=== PATIENT | male | born 1965 | race Two or more races ===

== ENCOUNTER 2017-07-05 13:18 | Inpatient (IN) | payer MEDICAID, OTHER ==
[~2017-07-05] VITALS: Ht 175.3 cm; Wt 104.2 kg
[2017-07-05 13:57] LABS: Basophils # (auto) 0 uL; Basophils % (auto) 0.8 % (0.0-2.0); Eosinophils # (auto) 0.1 uL; Eosinophils % (auto) 1.1 % (0.0-7.0); Hematocrit 45.5 % (41.0-53.0); Hemoglobin 15.7 g/dL (13.5-17.5); Lymphocytes % (auto) 33.3 % (10.0-50.0); Mean Corpuscular Hgb Conc. 34.5 g/dL (32.0-36.0); Mean Corpuscular Volume 92.7 fL (80.0-100.0); Monocytes # (auto) 0.6 uL; Monocytes % (auto) 10.8 % (0.0-12.0); Neutrophils # (auto) 3.2 uL; Platelet Count (auto) 213 10^3/uL (140-450); Red Blood Cells 4.91 10^6/uL (4.5-5.90)
[2017-07-05 14:21] LABS: Alanine Aminotransferase 570 U/L (16-61); Albumin 3.7 g/dL (3.4-5.0); Alkaline Phosphatase 482 U/L (45-117); Anion Gap 9 (5-15); Aspartate Aminotransferase 271 U/L (15-37); BUN/Creatinine Ratio 8.4; Bilirubin, Total 6.3 mg/dL (0.2-1.0); Blood Urea Nitrogen 11 mg/dL (7-18); Calcium 9.6 mg/dL (8.5-10.1); Carbon Dioxide 28 mmol/L (21-32); Chloride 94 mmol/L (98-107); GFR African American 74 mL/min; GFR Non-African American 61 mL/min; Lipase 223 U/L (73-393); Magnesium 2.5 mg/dL (1.6-2.6); Sodium 131 mmol/L (136-145)
[2017-07-05 14:29] LABS: Glucose 442 mg/dL (74-106)
[2017-07-05] MEDS ORDERED: SODIUM CHLORIDE 0.9% 1,000 ML IVB ONE (14:56)
[2017-07-05] MEDS ORDERED: NALBUPHINE HCL 10 MG/1ml INJECTION IV ONE (15:00)
[2017-07-05] MEDS ORDERED: METOCLOPRAMIDE HCL 5MG/ml INJ 2ml VIAL IV ONE (15:00)
[2017-07-05] MEDS ORDERED: cefTRIAXone 1GM/50ML D5W 50 ML IV ONE ×2 (17:30→18:00)
[2017-07-05] MEDS ORDERED: InsuLIN REG 1unit/0.01ml Soln (100units/ml) IV ONE (17:30)
[2017-07-05] MEDS: SODIUM CHLORIDE 0.9% 1,000 ML IV SCH (17:48)
[2017-07-05] MEDS ORDERED: PROMETHAZINE HCL 25 MG/ML 1ML IV PRN (18:00)
[2017-07-05] MEDS ORDERED: PANTOPRAZOLE 40 MG/10 ML VIAL IV ONE (18:00)
[2017-07-05] MEDS ORDERED: NITROGLYCERIN 0.4 MG SL TAB SL PRN (18:00)
[2017-07-05] MEDS ORDERED: LORazepam 2MG/ML-1ML VIAL IV PRN (18:00)
[2017-07-05] MEDS ORDERED: DEXTROSE (50%) 50ML SYRG IV PRN (18:00)
[2017-07-05] MEDS ORDERED: MORPHINE SULFATE 10 MG/ML INJ 1ML SDV IV PRN ×2 (18:00)
[2017-07-05] MEDS: metroNIDAZOLE 500MG/100ML 100 ML IV SCH (18:20)
[2017-07-05] MEDS: ACCU-CHEK COMFORT CURVE STRIP VI SCH (20:13)
[2017-07-05] MEDS: InsuLIN REG 1unit/0.01ml Soln (100units/ml) SC SCH (20:15)
[2017-07-05 21:00] VITALS: BP 105/71
[2017-07-06] VITALS (7 sets, daily range): BP systolic 118–153; BP diastolic 65–94
[2017-07-06] MEDS: ACCU-CHEK COMFORT CURVE STRIP VI SCH ×6 (00:05→19:56)
[2017-07-06] MEDS: InsuLIN REG 1unit/0.01ml Soln (100units/ml) SC SCH ×6 (00:05→19:56)
[2017-07-06] MEDS: metroNIDAZOLE 500MG/100ML 100 ML IV SCH ×4 (00:06→17:02)
[2017-07-06] MEDS: SODIUM CHLORIDE 0.9% 1,000 ML IV SCH ×4 (03:10→22:59)
[2017-07-06] MEDS ORDERED: AMLO10TA2 PO (04:17)
[2017-07-06] MEDS ORDERED: SIMV-8 PO (04:17)
[2017-07-06] MEDS ORDERED: PIOG30TA37 OR (04:17)
[2017-07-06] MEDS ORDERED: LISI40TA PO (04:17)
[2017-07-06 07:22] LABS: Basophils # (auto) 0 uL; Basophils % (auto) 0.5 % (0.0-2.0); Eosinophils # (auto) 0.1 uL; Eosinophils % (auto) 2.3 % (0.0-7.0); Hematocrit 40.8 % (41.0-53.0); Hemoglobin 14.2 g/dL (13.5-17.5); Lymphocytes # (auto) 1.5 uL; Lymphocytes % (auto) 34.3 % (10.0-50.0); Mean Corpuscular Hemoglobin 31.8 pg (28.0-32.0); Mean Corpuscular Hgb Conc. 34.7 g/dL (32.0-36.0); Mean Corpuscular Volume 91.7 fL (80.0-100.0); Monocytes # (auto) 0.5 uL; Monocytes % (auto) 10.8 % (0.0-12.0); Neutrophils # (auto) 2.3 uL; Neutrophils % (auto) 52.1 % (37.0-80.0); Nucleated Red Blood Cells % 0.2 %; Platelet Count (auto) 165 10^3/uL (140-450); Red Blood Cells 4.45 10^6/uL (4.5-5.90); Red Cell Distribution Width 12.8 % (11.8-14.3); White Blood Cell 4.4 10^3/uL (4.4-10.8)
[2017-07-06 07:46] LABS: Bilirubin, Total 4.3 mg/dL (0.2-1.0); Calcium 8.8 mg/dL (8.5-10.1); Total Protein 6.6 g/dL (6.4-8.2)
[2017-07-06] MEDS: cefTRIAXone 1GM/50ML D5W 50 ML IV SCH (08:34)
[2017-07-06] MEDS: PANTOPRAZOLE 40 MG/10 ML VIAL IV SCH (09:04)
[2017-07-06] MEDS: MORPHINE SULFATE 10 MG/ML INJ 1ML SDV IV PRN (16:43)
[2017-07-07] VITALS (7 sets, daily range): BP systolic 127–157; BP diastolic 76–94
[2017-07-07] MEDS: ACCU-CHEK COMFORT CURVE STRIP VI SCH ×6 (04:20→20:12)
[2017-07-07] MEDS: MORPHINE SULFATE 10 MG/ML INJ 1ML SDV IV PRN (04:20)
[2017-07-07] MEDS: InsuLIN REG 1unit/0.01ml Soln (100units/ml) SC SCH ×6 (04:20→20:12)
[2017-07-07] MEDS: SODIUM CHLORIDE 0.9% 1,000 ML IV SCH ×4 (06:08→20:11)
[2017-07-07] MEDS: metroNIDAZOLE 500MG/100ML 100 ML IV SCH ×4 (06:08→17:05)
[2017-07-07 06:51] LABS: Basophils # (auto) 0 uL; Basophils % (auto) 0.6 % (0.0-2.0); Eosinophils # (auto) 0.1 uL; Hemoglobin 14.6 g/dL (13.5-17.5); Lymphocytes # (auto) 1.3 uL; Mean Corpuscular Hemoglobin 31.8 pg (28.0-32.0); Mean Corpuscular Volume 93.3 fL (80.0-100.0); Monocytes # (auto) 0.4 uL; Monocytes % (auto) 9.1 % (0.0-12.0); Neutrophils # (auto) 2.7 uL; Neutrophils % (auto) 59.3 % (37.0-80.0); Nucleated Red Blood Cells % 0.1 %; Platelet Count (auto) 171 10^3/uL (140-450); Red Blood Cells 4.61 10^6/uL (4.5-5.90); Red Cell Distribution Width 12.9 % (11.8-14.3); White Blood Cell 4.6 10^3/uL (4.4-10.8)
[2017-07-07 07:11] LABS: Albumin 3.1 g/dL (3.4-5.0); BUN/Creatinine Ratio 7.9; Potassium 4.1 mmol/L (3.5-5.1)
[2017-07-07 07:13] LABS: Bilirubin, Total 4.5 mg/dL (0.2-1.0); Total Protein 6.9 g/dL (6.4-8.2)
[2017-07-07] MEDS: cefTRIAXone 1GM/50ML D5W 50 ML IV SCH (09:57)
[2017-07-07] MEDS: PANTOPRAZOLE 40 MG/10 ML VIAL IV SCH (09:58)
[2017-07-08] MEDS: ACCU-CHEK COMFORT CURVE STRIP VI SCH ×5 (00:02→15:34)
[2017-07-08] MEDS: metroNIDAZOLE 500MG/100ML 100 ML IV SCH ×3 (00:02→11:22)
[2017-07-08] MEDS: InsuLIN REG 1unit/0.01ml Soln (100units/ml) SC SCH ×5 (04:21→15:34)
[2017-07-08] MEDS: SODIUM CHLORIDE 0.9% 1,000 ML IV SCH ×2 (04:25→11:23)
[2017-07-08 05:20] VITALS: BP 145/90
[2017-07-08 05:54] LABS: Basophils # (auto) 0 uL; Basophils % (auto) 0.9 % (0.0-2.0); Eosinophils # (auto) 0.1 uL; Eosinophils % (auto) 2.3 % (0.0-7.0); Hematocrit 41.9 % (41.0-53.0); Hemoglobin 14.3 g/dL (13.5-17.5); Lymphocytes # (auto) 1.2 uL; Lymphocytes % (auto) 29.3 % (10.0-50.0); Mean Corpuscular Hemoglobin 31.6 pg (28.0-32.0); Mean Corpuscular Hgb Conc. 34.1 g/dL (32.0-36.0); Mean Corpuscular Volume 92.7 fL (80.0-100.0); Monocytes # (auto) 0.4 uL; Monocytes % (auto) 10.4 % (0.0-12.0); Neutrophils # (auto) 2.4 uL; Neutrophils % (auto) 57.1 % (37.0-80.0); Nucleated Red Blood Cells % 0.1 %; Platelet Count (auto) 163 10^3/uL (140-450); Red Blood Cells 4.52 10^6/uL (4.5-5.90); Red Cell Distribution Width 12.8 % (11.8-14.3); White Blood Cell 4.2 10^3/uL (4.4-10.8)
[2017-07-08 06:04] LABS: Albumin 3.1 g/dL (3.4-5.0); BUN/Creatinine Ratio 9.6; Calcium 8.9 mg/dL (8.5-10.1); Potassium 4.3 mmol/L (3.5-5.1)
[2017-07-08 06:13] LABS: Bilirubin, Total 4.4 mg/dL (0.2-1.0); Total Protein 6.5 g/dL (6.4-8.2)
[2017-07-08 08:00] VITALS: BP 152/95
[2017-07-08] MEDS: cefTRIAXone 1GM/50ML D5W 50 ML IV SCH (08:06)
[2017-07-08 08:42] VITALS: BP 152/95
[2017-07-08] MEDS: PANTOPRAZOLE 40 MG/10 ML VIAL IV SCH (09:52)
[2017-07-08 13:00] VITALS: BP 140/85
[2017-07-08 15:10] LABS: % Iron Saturation 18.5 % (20-55)
[2017-07-08 16:48] VITALS: BP 140/85
[2017-07-08 17:29] VITALS: BP 148/95
[2017-07-09 10:55] LABS: Hepatitis B Surface Antigen Negative (Negative)
[2017-07-09 11:15] LABS: Hepatitis B Core IgM Negative; Hepatitis C Antibody Negative (Negative)
[2017-07-09 11:17] LABS: Hepatitis A Ab IgM Negative
== END 2017-07-08 17:20 | disposition home or self-care (01) ==
LOC: ER 13:18 → TELE 13:19 → TELE-WESTW 20:50
PROVIDERS: ADMIT Internal Medicine; ATTEND Family Medicine
DX: K81.0 Acute cholecystitis (principal); K85.90 Acute pancreatitis without necrosis or infection, unspecified; K74.60 Unspecified cirrhosis of liver; N28.1 Cyst of kidney, acquired; E87.1 Hypo-osmolality and hyponatremia; E11.9 Type 2 diabetes mellitus without complications; I10 Essential (primary) hypertension; I45.10 Unspecified right bundle-branch block; E27.9 Disorder of adrenal gland, unspecified; N20.0 Calculus of kidney; K59.00 Constipation, unspecified; K86.1 Other chronic pancreatitis; Z87.442 Personal history of urinary calculi
CPT/HCPCS: 36415; 71010; 74176; 74181; 76705; 78226; 80053; 80061; 80074; 80320; 82150; 82378; 82390; 82962; 83036; 83540; 83550; 83690; 83735; 84443; 84484; 85025; 86038; 93005; 96365; 96375; C9113; J0696; J1815; J3490

== ENCOUNTER 2018-07-27 11:49 | Emergency (ER) | payer MEDICAID ==
[~2018-07-27] VITALS: Ht 175.3 cm; Wt 83.9 kg
[~2018-07-27 11:49] MED LIST: DOCU100T15 PO; GLIP-115 PO; HYDR1CAP27 PO; LACT10SO3 PO; LEVO500T21 PO; PIOG1TAB37 OR
[2018-07-27] MEDS ORDERED: SODIUM CHLORIDE 0.9% 1,000 ML IV ONE (12:51)
[2018-07-27] MEDS ORDERED: ONDANSETRON HCL 4 MG/2 ML VIAL IV ONE (13:00)
[2018-07-27] MEDS ORDERED: MORPHINE SULFATE 4 MG/ML SYR/VIAL IV ONE (13:00)
[2018-07-27] MEDS ORDERED: ASPirin 81 mg TAB PO ONE (13:00)
[2018-07-27 13:26] LABS: Basophils # (auto) 0 uL; Eosinophils # (auto) 0.1 uL; Eosinophils % (auto) 1.7 % (0.0-7.0); Hemoglobin 13.4 g/dL (13.5-17.5); Lymphocytes # (auto) 1.1 uL; Lymphocytes % (auto) 22.8 % (10.0-50.0); Mean Corpuscular Hemoglobin 32.3 pg (28.0-32.0); Mean Corpuscular Hgb Conc. 34.3 g/dL (32.0-36.0); Mean Corpuscular Volume 94.3 fL (80.0-100.0); Monocytes # (auto) 0.4 uL; Monocytes % (auto) 9.6 % (0.0-12.0); Neutrophils % (auto) 64.9 % (37.0-80.0); Nucleated Red Blood Cells % 0.1 %; Platelet Count (auto) 123 10^3/uL (140-450); Red Blood Cells 4.14 10^6/uL (4.5-5.90); Red Cell Distribution Width 14.9 % (11.8-14.3); White Blood Cell 4.6 10^3/uL (4.4-10.8)
[2018-07-27 13:41] LABS: INR 1.91 (0.9-1.15); Partial Thromboplastin Time 35.7 sec (23.78-33.04); Prothrombin Time 19.7 sec (9.27-12.13)
[2018-07-27 13:44] LABS: Alanine Aminotransferase 60 U/L (16-61); Albumin 2.5 g/dL (3.4-5.0); Anion Gap 6 (5-15); Aspartate Aminotransferase 83 U/L (15-37); BUN/Creatinine Ratio 12.8; Blood Urea Nitrogen 12 mg/dL (7-18); Calcium 8.6 mg/dL (8.5-10.1); Carbon Dioxide 26 mmol/L (21-32); Chloride 104 mmol/L (98-107); GFR African American 108 mL/min; GFR Non-African American 89 mL/min; Glucose 124 mg/dL (74-106); Potassium 3.9 mmol/L (3.5-5.1); Sodium 136 mmol/L (136-145)
[2018-07-27 13:49] LABS: Alkaline Phosphatase 418 U/L (45-117); Bilirubin, Total 8.2 mg/dL (0.2-1.0); Total Protein 7.6 g/dL (6.4-8.2)
[2018-07-27] MEDS ORDERED: PANTOPRAZOLE 40 MG/10 ML VIAL IV ONE ×2 (14:19→14:30)
[2018-07-27] MEDS ORDERED: NITROGLYCERIN 0.4 MG SL TAB SL PRN (16:00)
[2018-07-27] MEDS ORDERED: MORPHINE SULFATE 4 MG/ML SYR/VIAL IV PRN (16:00)
[2018-07-27] MEDS ORDERED: DEXTROSE (50%) 50ML SYRG IV PRN (16:15)
[2018-07-27] MEDS ORDERED: InsuLIN REG 1unit/0.01ml Soln (100units/ml) SC SCH ×2 (17:00→22:00)
[2018-07-27] MEDS ORDERED: ACCU-CHEK COMFORT CURVE STRIP VI SCH (17:00)
[2018-07-27 17:21] VITALS: BP 160/89
[2018-07-27] MEDS ORDERED: LACTULOSE 20Gm/30ML SOLN PO SCH (22:00)
[2018-07-28] MEDS ORDERED: PANTOPRAZOLE 40 MG TAB PO SCH (10:00)
== END 2018-07-27 19:07 | disposition left against medical advice (07) ==
LOC: ER 11:49 → TELE 16:02 → UNDOADMIN 16:02 → ER 19:07
DX: I24.9 Acute ischemic heart disease, unspecified (principal); I10 Essential (primary) hypertension; R07.89 Other chest pain; E11.9 Type 2 diabetes mellitus without complications; E78.5 Hyperlipidemia, unspecified; I25.2 Old myocardial infarction
CPT/HCPCS: 36415; 71045; 80053; 82962; 83036; 83735; 83880; 84484; 85025; 85610; 85730; 93005; 93306; 94761; 96372; 96374; 96375; 99285; C9113; J1815; J2270; J2405; J7030

== ENCOUNTER 2023-07-09 14:20 | Emergency (ER) | payer MEDICARE, MEDICAID ==
[~2023-07-09] VITALS: Ht 175.3 cm; Wt 88.2 kg
[~2023-07-09 14:20] MED LIST changes: -GLIP-115 PO; +GLIP5TAB12 PO; -LEVO500T21 PO; +LEVO500T31 PO
[2023-07-09 14:35] VITALS: BP 140/75; PULSE 70; RESP 18; TEMP 97.2; O2SAT 97
[2023-07-09] MEDS ORDERED: LIDOCAINE 1% HCL (LOCAL ANESTH.) INJ 20ML MDV IJ ONE (16:30)
[2023-07-09] MEDS ORDERED: cefTRIAXone SOD 1,000 MG VL IM ONE (16:45)
[2023-07-09] MEDS ORDERED: CEPH500C PO (17:03)
[2023-07-09] MEDS ORDERED: IBUP-1456 PO (17:03)
== END 2023-07-09 17:28 | disposition home or self-care (01) ==
LOC: ER 14:20
DX: S62.631A Displaced fracture of distal phalanx of left index finger, initial encounter for closed fracture (principal); E11.9 Type 2 diabetes mellitus without complications; I10 Essential (primary) hypertension; E78.5 Hyperlipidemia, unspecified; F12.10 Cannabis abuse, uncomplicated; W23.0XXA Caught, crushed, jammed, or pinched between moving objects, initial encounter; Y93.89 Activity, other specified; Y92.89 Other specified places as the place of occurrence of the external cause; Y99.8 Other external cause status
CPT/HCPCS: 12002; 73140; 96372; 99283; J0696; J2001

== ENCOUNTER 2023-07-19 11:13 | Emergency (ER) | payer MEDICARE, MEDICAID ==
[~2023-07-19] VITALS: Ht 175.3 cm; Wt 86.5 kg
[~2023-07-19 11:13] MED LIST changes: +CEPH500C PO; +IBUP-1456 PO
[2023-07-19 15:12] VITALS: BP 147/84; PULSE 62; RESP 18; TEMP 98.1; O2SAT 98
[2023-07-19] MEDS ORDERED: NEOMYCIN-BACITRACIN-POLYM UNITDOSE PKG TOP OINT TOP ONE (15:15)
== END 2023-07-19 15:21 | disposition home or self-care (01) ==
LOC: ER 11:13
DX: S61.211D Laceration without foreign body of left index finger without damage to nail, subsequent encounter (principal); I10 Essential (primary) hypertension; I25.2 Old myocardial infarction; E11.9 Type 2 diabetes mellitus without complications; E78.5 Hyperlipidemia, unspecified; Z79.1 Long term (current) use of non-steroidal anti-inflammatories (NSAID); Z79.2 Long term (current) use of antibiotics; Z79.899 Other long term (current) drug therapy; X58.XXXD Exposure to other specified factors, subsequent encounter